=== PATIENT | female | born 1975 | race Caucasian/White ===

== ENCOUNTER 2018-02-10 10:25 | Day surgery (SDC) | payer OTHER, SELFPAY ==
[2018-02-10 10:55] VITALS: BP 154/86; PULSE 102; RESP 18; TEMP 37.1; O2SAT 96; BMI 68.6
[2018-02-10 10:59] LABS: Hematocrit 38.7 % (37-47); Hemoglobin 12.1 g/dl (12.0-15.0); Mean Corp Hgb Conc 31.3 g/gl (32-36); Mean Corpuscular Hgb 26.7 pg (27.0-32.0); Mean Corpuscular Volume 85.4 fL (81-99); Mean Platelet Vol. 9.6 fl (6.2-12.0); Platelet Count 262 K/mm3 (150-450); RBC Distribution Width CV 14.9 % (11.6-14.6); RBC Distribution Width SD 45.4 fl (35.1-43.9); Red Blood Count 4.53 M/mm3 (4.2-5.4); Scan Indicated on CBC? Y/N NO; White Blood Count 4.4 K/mm3 (4.4-11.0)
[2018-02-10 11:01] LABS: Internal QC Validated? YES +Cl - CLEAR BKGD; Pregnancy, Urine Negative Negative
--- NOTE | 2018-02-10 11:55 | EMB_PTH ---
PATIENT: QUINTEN MARSH [place] [facility] [place][id number] AGE/SX: 42/F ROOM: RE02/10/[address]: Dr. Cely Zamora DO : 1975 BED: DIS: 02/10/2018 SPEC #: [id number] RECD: 02/10/18 12:48 STATUS: ANTONETTE NAWAF #: [id number] JAI: 02/10/18 11:[address]: Cely Zamora DEPT: SURGICAL PATHOLOGY RECD BY: Jaylen Payan ENTERED: 02/10/18 13:37 SP TYPE: ENDOM BX/C OT DR: Out of [facility] Doctor Tissues: Endometrium, NOS Procedures: Surgery Specimen Level IV HEADER OPERATION: Hysteroscopy, dilation and curettage PRE-OP DIAGNOSIS: Abnormal uterine bleeding TISSUE SUBMITTED: Endometrial curettings MICROSCOPIC DIAGNOSIS Endometrial curettings: Mildly disordered proliferative endometrium with extensive glandular and stromal breakdown. Fragments of endocervical mucosa with chronic inflammation and squamous metaplasia. SJ:afshin 02/11/18 MICROSCOPIC DESCRIPTION Slides are reviewed. GROSS DESCRIPTION Received in fixative is one container labeled with the patient's name and designated endometrial curettings. The specimen consists of multiple irregular and hemorrhagic fragments of red-hayward soft tissue that in aggregate measure 7 x 5 x 0.2 cm. The specimen is totally submitted in two cassettes. / AM:afshin 02/10/18 TC:5 CPT: 21790
[2018-02-10 12:24] VITALS: BP 154/86; BP 169/96; PULSE 93; RESP 16; TEMP 36.2; O2SAT 95
--- NOTE | 2018-02-10 12:24 | DCINST_ITS ---
Discharge Diet: No Restrictions Discharge Activity: Return to Normal Activity May shower in (days): 0 May resume sexual activity in: 1-2 weeks Weight Bearing Status: Weight bearing as tolerated Lifting Restrictions: None Call your doctor if you observe: Fever of 101 or Higher, Inability to urinate, Inability to have a bowel movement, Using more than one pad per hour, Shortness of breath, Dizziness, Chest pain, Calf discomfort, Uncontrolled pain Instructions: Discharge Instructions for Dilation and Curettage (D and C) Allergies/Adverse Reactions: Allergies No Known Allergies Allergy (Verified 02/09/18 11:45) Medications to take at Discharge Albuterol Inhaler [Ventolin Hfa (SP)] 1 - 2 puff INHALATION Q4H PRN PRN 02/09/18 Primary Care Physician: Momo Petersen,Out of [Primary Care Provider] - Test Results: Test results from this visit will be discussed in further detail at your follow- up appointment, if applicable. Please Follow Up With: Cely Zamora DO When: 1 week
--- NOTE | 2018-02-10 12:25 | PCM.OPRPT ---
Problem List (1) Abnormal uterine bleeding Status: Acute (2) Menorrhagia Status: Acute Report of Operation Date of Procedure: 02/10/18 Pre-Operative Diagnosis: Abnormal uterine bleeding, menorrhagia Post-Operative Diagnosis: As above Surgery/Procedure Performed:: Hysteroscopy, D&C Description of Surgical Findings:: No descent of the uterus and cervix. Endometrial cavity with very fluffy appearing endometrium. Because of the excess endometrium, the bilateral tubal ostia were unable to be visualized. No fibroids or polyps noted. Type of Anesthesia:: MAC Specimen's removed: Endometrial curettings Drains: None Estimated Blood Loss (mL): < 50 cc Description of Procedure: Indications: Patient is a 42-year-old who presented with new onset menorrhagia. She has been bleeding daily for the last month. She is currently taking oral progesterone without relief of her bleeding. Risks and benefits of a hysteroscopy, D&C were fully reviewed. She was consented for the procedure. A Mirena IUD was recommended, but the patient declined this. Procedure: MAC anesthesia was found to be adequate. The patient was prepped and draped in the usual sterile fashion in dorsal lithotomy position using yellowfin stirrups. Her bladder was drained with a straight cath. With several different retractors the cervix was unable to be visualized. The cervix was palpated on bimanual exam and grasped with a single-tooth tenaculum. A right angle was placed posteriorly and anteriorly, and with traction on the single-tooth tenaculum the cervix was visualized. The cervix was serially dilated to accommodate the hysteroscope. The hysteroscope was advanced to the fundus of the uterus, and distended with normal saline. The endometrium was very fluffy and due to the excessive endometrium the bilateral tubal ostia were not visualized. No fibroids or polyps were noted. Hysteroscope was then removed. A sharp curettage was performed for a moderate amount of tissue. Endometrial curettings were sent to pathology for review. All instruments removed from the vagina. Instrument counts were correct. The patient tolerated procedure well and was sent to the recovery room in stable condition. - Complications None - Admit VTE Documentation VTE Present on Admission: No
[2018-02-10 12:30] VITALS: BP 134/72; BP 154/86; PULSE 89; RESP 16; O2SAT 93
[2018-02-10 12:35] VITALS: BP 132/92; BP 154/86; PULSE 91; RESP 16; O2SAT 92
[2018-02-10 12:45] VITALS: BP 131/92; BP 154/86; PULSE 92; RESP 16; TEMP 36.5; O2SAT 92
[2018-02-10 13:58] VITALS: BP 128/78; BP 154/86; PULSE 70; RESP 18; TEMP 36.6; O2SAT 99
== END 2018-02-10 14:24 | disposition home or self-care (01) ==
LOC: SDC 10:27 → AC 10:29
PROVIDERS: Anesthesiology; Referring Provider Obstetrics & Gynecology; Visit Provider Obstetrics & Gynecology
PROC: 0UDB8ZZ Extraction of Endometrium, Via Natural or Artificial Opening Endoscopic (ICD-10-PCS; CPT 58558; principal; 2018-02-10 11:45)
DX: N93.9 Abnormal uterine and vaginal bleeding, unspecified (principal); N92.0 Excessive and frequent menstruation with regular cycle; N85.8 Other specified noninflammatory disorders of uterus; J45.909 Unspecified asthma, uncomplicated; Z87.891 Personal history of nicotine dependence
CPT/HCPCS: 58558; 81025; 85027; 86850; 86900; 88305; J7120